=== PATIENT | male | born 2000 | race Caucasian/White ===

== ENCOUNTER 2020-02-10 17:12 | Emergency (ER) | payer MEDICAID ==
[~2020-02-10] VITALS: Ht 172.7 cm; Wt 59.0 kg
[2020-02-10] MEDS ORDERED: ACETAMINOPHEN 325MG TABLET PO STA (17:36)
[2020-02-10] MEDS ORDERED: BACITRACIN ZINC OINT UDPKT TOP NR (18:15)
[2020-02-10 18:54] LABS: *AMPHETAMINES SCREEN URINE NEGATIVE (NEGATIVE); *BARBITURATES SCREEN URINE NEGATIVE (NEGATIVE); *BENZODIAZEPINES SCREEN URINE NEGATIVE (NEGATIVE); *COCAINE SCREEN URINE NEGATIVE (NEGATIVE); METHADONE URINE SCREEN NEGATIVE (NEGATIVE); OPIATES URINE SCREEN NEGATIVE (NEGATIVE)
[2020-02-10 18:55] LABS: CANNABINOID URINE SCREEN PRESUMTIVE POSITIVE (NEGATIVE); PHENCYCLIDINE URINE SCREEN NEGATIVE (NEGATIVE)
[2020-02-10 19:56] VITALS: BP 131/74
== END 2020-02-10 19:57 | disposition home or self-care (01) ==
LOC: ER 17:12
DX: S61.451A Open bite of right hand, initial encounter (principal); S00.83XA Contusion of other part of head, initial encounter; Y08.89XA Assault by other specified means, initial encounter; Y93.89 Activity, other specified; Y92.89 Other specified places as the place of occurrence of the external cause; Y99.8 Other external cause status; F43.10 Post-traumatic stress disorder, unspecified
CPT/HCPCS: 80305; 99284